=== PATIENT | male | born 1955 | race Caucasian/White ===

== ENCOUNTER → 2016-07-21 | Day surgery (SDC) | payer BC ==
[~2016-07-21] MED LIST: Lidocain 1% EPI 1:100,000 * 30 ML MDV ONE; Lidocaine 1% MPF wEPI 200,000* 30 ML SDV ONE; Lidocaine 4% TOPICAL* 50 ML TOP.SOLN ONE; Oxymetazoline 0.05% NASAL SPR* 15 ML BTL ONE; Tetracaine 1%* 2 ML AMP ONE
[2016-07-21 13:50] VITALS: BP 115/74
--- NOTE | 2016-07-22 05:19 | OP ---
DATE OF OPERATION: 07/21/16 - SDS DATE OF : 57 SURGEON: Jared Banda MD ANESTHESIA: Local anesthesia. PRE-OP DIAGNOSIS: Inferior turbinate hypertrophy. POST-OP DIAGNOSIS: Inferior turbinate hypertrophy. OPERATIVE PROCEDURE: Bilateral submucous resection of the inferior turbinates under local anesthesia. COMPLICATIONS: None. DISPOSITION: Good. SPECIMEN: None. BLOOD LOSS: None. DESCRIPTION OF PROCEDURE: The patient was taken to the operating room, placed in a sitting position on the operating room table. His nose was atomized with 4 % lidocaine and then with oxymetazoline and he was packed with these then his turbinates were injected with 1% lidocaine with 1:100,000 epinephrine and then anesthetized with 1% tetracaine. Incision was made in the anterior inferior turbinates with a 15 blade. A submucosal pocket was raised with the caudal elevator. The nasal debrider was inserted into this pocket and then the submucosa was debrided. This was done bilaterally. Cottonoids were placed again, removed, and his nose was suctioned. The patient tolerated this well, with no complications, and transferred to the recovery room in stable condition. [id number] #: [id number] MTDD
== END | disposition home or self-care (01) ==
LOC: OR 11:38
PROVIDERS: ATTEND Otolaryngology
DX: J34.3 Hypertrophy of nasal turbinates (principal); G47.33 Obstructive sleep apnea (adult) (pediatric)
CPT/HCPCS: A9270-GY; J2001